=== PATIENT | female | born 1990 | race Caucasian/White ===

== ENCOUNTER 2023-08-22 09:01 | Inpatient (IN) | payer OTHER ==
[2023-08-22] MEDS ORDERED: Carboprost 250 MCG/ML AMP IM PRN (09:04)
[2023-08-22] MEDS ORDERED: Ibuprofen 800 MG TAB PO PRN (09:04)
[2023-08-22] MEDS ORDERED: fentaNYL 50 mcg/mL 1 mL Vial SLOW IVP PRN (09:04)
[2023-08-22] MEDS ORDERED: Ondansetron PF 4 MG/2 ML Vial IVP PRN (09:04)
[2023-08-22] MEDS ORDERED: Lidocaine 1% (PF) 30 ML VIAL SC PRN (09:04)
[2023-08-22] MEDS ORDERED: HYDROcodone/Acetaminophen 5/325 mg Tablet PO PRN ×2 (09:04)
[2023-08-22] MEDS ORDERED: hydrALAZINE 20 MG/ML VIAL SLOW IVP PRN (09:04)
[2023-08-22] MEDS ORDERED: Docusate 100 MG CAP PO PRN (09:04)
[2023-08-22] MEDS ORDERED: Acetaminophen 500 MG TAB PO PRN (09:04)
[2023-08-22] MEDS ORDERED: Promethazine HCl 25 MG/ML VIAL IM PRN (09:04)
[2023-08-22] MEDS ORDERED: Misoprostol 200 MCG TAB PR PRN (09:04)
[2023-08-22] MEDS ORDERED: Diphenoxylate HCl/Atropine Tablet PO PRN ×2 (09:04)
[2023-08-22] MEDS ORDERED: Oxytocin 30 units/NS 500 ML 500 ML IV SCH (09:15)
[2023-08-22] MEDS ORDERED: Lactated Ringer's 1,000 ML IV SCH (09:15)
[2023-08-22 10:31] LABS: Hematocrit 35.7 % (34.9-44.5); Hemoglobin 12.8 g/dL (12.0-15.5); Mean Corpuscular HGB CONC 35.9 g/dL (32.0-36.0); Mean Corpuscular Hemoglobin 33.9 pg (27.0-33.0); Mean Corpuscular Volume 94.4 fl (81.6-98.3); Mean Platelet Volume 11.2 fl (7.4-10.4); Platelet Count 153 10x3/uL (150-450); RBC Distribution Width 12.2 % (11.5-14.5); Red Blood Cell (RBC) Count 3.78 10x6/uL (3.90-5.03); White Blood Cell (WBC) Count 7.9 10x3/uL (3.5-10.5)
[2023-08-22 11:07] LABS: HBSAg Index 0.16 S/CO (0-0.99); Hep B Surf Ag - L&D Non-Reactive S/CO (NonReactive)
[2023-08-22 11:08] LABS: Syphilis Antibody Nonreactive (Nonreactive); Syphilis Antibody Index 0.06 S/CO (<1.00 Non-Reactive)
[2023-08-22 11:34] LABS: HIV (1/2) Antibody/Antigen Non-Reactive (NonReactive); HIV 1/2 INDEX 0.11 S/CO (<1.00)
[2023-08-22 18:02] VITALS: BMI 23.3
[2023-08-22] MEDS ORDERED: Zolpidem Tartrate 5 MG TAB PO PRN (22:41)
[2023-08-23] MEDS ORDERED: Methylergonovine 0.2 MG/ML VIAL ONE (19:21)
[2023-08-24] MEDS ORDERED: Boostrix 0.5 ML (Tdap) VIAL (>/=7 yrs of age) IM ONE (00:19)
[2023-08-24] MEDS ORDERED: Milk Of Magnesia 30 ML UDCUP PO PRN (00:19)
[2023-08-24] MEDS ORDERED: Preparation H Ointment 28 GM TUBE PR PRN (00:19)
[2023-08-24] MEDS ORDERED: Ondansetron PF 4 MG/2 ML Vial IVP PRN (00:19)
[2023-08-24] MEDS ORDERED: Lanolin Ointment 7 GM TUBE TOP PRN (00:19)
[2023-08-24] MEDS ORDERED: hydrALAZINE 20 MG/ML VIAL SLOW IVP PRN (00:19)
[2023-08-24] MEDS ORDERED: diphenhydrAMINE 25 MG CAP PO PRN (00:19)
[2023-08-24] MEDS ORDERED: Zolpidem Tartrate 5 MG TAB PO PRN (00:19)
[2023-08-24] MEDS ORDERED: Bisacodyl 10 MG SUPP PR PRN (00:19)
[2023-08-24] MEDS ORDERED: HYDROcodone/Acetaminophen 5/325 mg Tablet PO PRN ×2 (00:19)
[2023-08-24] MEDS ORDERED: Benzocaine-Menthol 82.5 ML CAN TOP PRN (00:19)
[2023-08-24] MEDS ORDERED: Misoprostol 200 MCG TAB VAG PRN (00:19)
[2023-08-24] MEDS ORDERED: Oxytocin 30 units/NS 500 ML 500 ML IV SCH (00:30)
[2023-08-24 04:43] LABS: Hematocrit 29.4 % (34.9-44.5); Hemoglobin 10.4 g/dL (12.0-15.5); Mean Corpuscular HGB CONC 35.4 g/dL (32.0-36.0); Mean Corpuscular Hemoglobin 33.8 pg (27.0-33.0); Mean Corpuscular Volume 95.5 fl (81.6-98.3); Mean Platelet Volume 11.4 fl (7.4-10.4); Platelet Count 166 10x3/uL (150-450); RBC Distribution Width 12.2 % (11.5-14.5); Red Blood Cell (RBC) Count 3.08 10x6/uL (3.90-5.03); White Blood Cell (WBC) Count 20.7 10x3/uL (3.5-10.5)
[2023-08-24 04:44] LABS: MDiff Complete? YES
[2023-08-24 06:21] LABS: Band 8 % (5-11); Lymphocytes 3 % (21-51); Monocytes 1 % (0-10); Neutrophil 88 % (42-75)
[2023-08-24 06:24] LABS: Platelet Adequacy Comment Appears Adequate; RBC Morph Comment Within Normal Limits
[2023-08-24] MEDS: Prenatal Vitamin 1 TAB PO SCH (07:45)
[2023-08-24] MEDS: Ibuprofen 800 MG TAB PO SCH ×3 (07:45→22:06)
[2023-08-24] MEDS: Ferrous Sulfate 325 MG TAB PO SCH ×2 (07:46→17:10)
[2023-08-24] MEDS: Docusate 100 MG CAP PO SCH ×2 (07:46→22:06)
[2023-08-25] MEDS: Ibuprofen 800 MG TAB PO SCH (05:22)
[2023-08-25] MEDS: Ferrous Sulfate 325 MG TAB PO SCH (07:23)
[2023-08-25] MEDS: Prenatal Vitamin 1 TAB PO SCH (07:57)
[2023-08-25] MEDS: Docusate 100 MG CAP PO SCH (07:57)
[2023-08-25 08:17] VITALS: BP 104/71; TEMP 98
== END 2023-08-25 14:35 | disposition home or self-care (01) | DRG 807 ==
LOC: CSHLD 09:01 → CSHPP 08-24 10:08
PROVIDERS: ADMIT Obstetrics & Gynecology; ATTEND Obstetrics & Gynecology
PROC: 10D07Z6 Extraction of Products of Conception, Vacuum, Via Natural or Artificial Opening (ICD-10-PCS; principal; 2023-08-22)
PROC: 0KQM0ZZ Repair Perineum Muscle, Open Approach (ICD-10-PCS; 2023-08-22)
PROC: 10907ZC Drainage of Amniotic Fluid, Therapeutic from Products of Conception, Via Natural or Artificial Opening (ICD-10-PCS; 2023-08-22)
PROC: 3E0P7VZ Introduction of Hormone into Female Reproductive, Via Natural or Artificial Opening (ICD-10-PCS; 2023-08-22)
DX: O70.1 Second degree perineal laceration during delivery (principal); Z37.0 Single live birth; Z3A.39 39 weeks gestation of pregnancy; O76 Abnormality in fetal heart rate and rhythm complicating labor and delivery
CPT/HCPCS: 36415; 51702; 85025; 85027; 86780; 86850; 86900; 86901; 87340; 87389; 88307; J2001; J2405